=== PATIENT | male | born 1995 | race Caucasian/White ===

== ENCOUNTER 2019-03-29 21:14 | Emergency (ER) | payer SELFPAY ==
[~2019-03-29] VITALS: Ht 185.4 cm; Wt 83.9 kg
--- NOTE | 2019-03-29 21:17 | ED.ADGEN ---
Past History Past Medical History: Asthma Adult General Chief Complaint Chief Complaint ".. I recently quit smoking.. but I ve gotten more short of breath.. the last couple days... I have a hx of asthma.. but my inhaler .. does not seem to be working as well...." HPI HPI Patient is a 24 year old male who presents with above hx and complaints increased wheezing and chest tightness last 48 hours. Patient does have a history of asthma. Patient does not know what his best peak flow is. Patient recently stopped smoking. Patient denies any productive cough. No history of fever. No history of immunosuppression. No history of travel. Has not been on steroids recently. Has had some upper nasal congestion which he attributed to allergies. Patient reports increased tachycardia today. Patient denies any history of cardiac disorders. No hx of previous admissions for his asthma. Pt. does continue to smoke marijuana. Review of Systems Review of Systems Constitutional: Denies fever or chills [] Eyes: Denies change in visual acuity, redness, or eye pain [] HENT: History of nasal congestion Respiratory: Plaints of cough or wheezing and shortness of breath [] Cardiovascular: No additional information not addressed in HPI [] GI: Denies abdominal pain, nausea, vomiting, bloody stools or diarrhea [] : Denies dysuria or hematuria [] Musculoskeletal: Denies back pain or joint pain [] Integument: Denies rash or skin lesions [] Neurologic: Denies headache, focal weakness or sensory changes [] Endocrine: Denies polyuria or polydipsia [] All other systems were reviewed and found to be within normal limits, except as documented in this note. Family History Family History Noncontributory Current Medications Current Medications Current Medications Medications (Trade) Dose Ordered Sig/Marcela Start Time Stop Time Status Last Admin Dose Admin Albuterol Sulfate (Ventolin Hfa Inhaler) 60 puff STK-MED ONCE 03/29/19 23:21 03/29/19 23:21 DC Albuterol/ Ipratropium (Duoneb) 3 ml 1X ONCE 03/29/19 21:30 03/29/19 21:35 DC 03/29/19 22:02 3 ML Lactated Ringer's 1,000 ml @ 1,000 mls/hr Q1H 03/29/19 21:29 03/29/19 22:28 DC 03/29/19 21:50 1,000 MLS/HR Methylprednisolone Sodium Succinate (SOLU-Medrol 125MG VIAL) 125 mg 1X ONCE 03/29/19 21:30 03/29/19 21:35 DC 03/29/19 21:50 125 MG Potassium Chloride (Klor-Con) 40 meq 1X ONCE 03/29/19 23:15 03/29/19 23:21 DC 03/29/19 23:13 40 MEQ Allergies Allergies Allergies Coded Allergies Type Severity Reaction Last Updated Verified No Known Drug Allergies 03/29/19 No Physical Exam Physical Exam Constitutional: Well developed, well nourished, [id number] distress, non- toxic appearance. [] HENT: Normocephalic, atraumatic, bilateral external ears normal, oropharynx moist, no oral exudates, nose swollen turbinates and clear rhinorrhea Eyes: PERRLA, EOMI, conjunctiva normal, no discharge. [] Neck: Normal range of motion, no tenderness, supple, no stridor. [] Cardiovascular: Tachycardia Heart rate regular rhythm, no murmur [] Lungs & Thorax: Bilateral breath sounds equal apex with scattered wheezes on Auscultation []. No intercostal retractions. Abdomen: Bowel sounds normal, soft, no tenderness, no masses, no pulsatile masses. [] Skin: Warm, dry, no erythema, no rash. [] Back: No tenderness, no CVA tenderness. [] Extremities: No tenderness, no cyanosis, no clubbing, ROM intact, no edema. [] Neurologic: Alert and oriented X 3, normal motor function, normal sensory function, no focal deficits noted. [] Psychologic: Affect anxious, judgement normal, mood normal. [] Current Patient Data Vital Signs Vital Signs Date Time Temp Pulse Resp B/P (MAP) Pulse Ox O2 Delivery O2 Flow Rate FiO2 03/29/19 22:08 Room Air 03/29/19 21:26 97.9 110 18 97 Lab Results Laboratory Tests Test 03/29/19 21:35 03/29/19 22:55 White Blood Count 7.2 x10^3/uL (4.0-11.0) Red Blood Count 4.73 x10^6/uL (4.30-5.70) Hemoglobin 14.4 g/dL (13.0-17.5) Hematocrit 42.7 % (39.0-53.0) Mean Corpuscular Volume 90 fL (79-100) Mean Corpuscular Hemoglobin 31 pg (25-35) Mean Corpuscular Hemoglobin Concent 34 g/dL (31-37) Red Cell Distribution Width 13.5 % (11.5-14.5) Platelet Count 192 x10^3/uL (140-400) Neutrophils (%) (Auto) 73 % (31-73) Lymphocytes (%) (Auto) 17 % (24-48) L Monocytes (%) (Auto) 9 % (0-9) Eosinophils (%) (Auto) 1 % (0-3) Basophils (%) (Auto) 0 % (0-3) Neutrophils # (Auto) 5.3 x10^3uL (1.8-7.7) Lymphocytes # (Auto) 1.2 x10^3/uL (1.0-4.8) Monocytes # (Auto) 0.7 x10^3/uL (0.0-1.1) Eosinophils # (Auto) 0.1 x10^3/uL (0.0-0.7) Basophils # (Auto) 0.0 x10^3/uL (0.0-0.2) Prothrombin Time 10.8 SEC (9.4-11.4) Prothrombin Time INR 1.0 (0.9-1.1) Activated Partial Thromboplast Time 25 SEC (23-33) D-Dimer (Christiana) < 0.19 mg/L (0.00-0.50) Sodium Level 136 mmol/L (136-145) Potassium Level 3.1 mmol/L (3.5-5.1) L Chloride Level 102 mmol/L (98-107) Carbon Dioxide Level 25 mmol/L (21-32) Anion Gap 9 (6-14) Blood Urea Nitrogen 15 mg/dL (8-26) Creatinine 1.1 mg/dL (0.7-1.3) Estimated GFR (Cockcroft-Gault) 83.7 Glucose Level 137 mg/dL (70-99) H Calcium Level 9.0 mg/dL (8.5-10.1) Magnesium Level 1.8 mg/dL (1.8-2.4) Total Bilirubin 0.4 mg/dL (0.2-1.0) Direct Bilirubin 0.1 mg/dL (0.0-0.2) Aspartate Amino Transferase (AST) 16 U/L (15-37) Alanine Aminotransferase (ALT) 24 U/L (16-63) Alkaline Phosphatase 62 U/L (46-116) Creatine Kinase 121 U/L (39-308) Troponin I Quantitative < 0.017 ng/mL (0-0.055) WK-Vva-R-Type Natriuretic Peptide 62 pg/mL (0-124) Total Protein 7.2 g/dL (6.4-8.2) Albumin 4.0 g/dL (3.4-5.0) Lipase 63 U/L (73-393) L Urine Collection Type Unknown Urine Color Yellow Urine Clarity Clear Urine pH 6.5 Urine Specific [place] 1.010 Urine Protein Neg (NEG-TRACE) Urine Glucose (UA) Neg mg/dL (NEG) Urine Ketones (Stick) Neg mg/dL (NEG) Urine Blood Neg (NEG) Urine Nitrite Neg (NEG) Urine Bilirubin Neg (NEG) Urine Urobilinogen Dipstick 0.2 mg/dL (0.2 mg/dL) Urine Leukocyte Esterase Neg (NEG) Urine RBC 0 /HPF (0-2) Urine WBC 0 /HPF (0-4) Urine Squamous Epithelial Cells Occ /LPF Urine Transitional Epithelial Cells Occ /LPF Urine Bacteria 0 /HPF (0-FEW) Urine Opiates Screen Neg (NEG) Urine Methadone Screen Neg (NEG) Urine Barbiturates Neg (NEG) Urine Phencyclidine Screen Neg (NEG) Urine Amphetamine/Methamphetamine Neg (NEG) Urine Benzodiazepines Screen Neg (NEG) Urine Cocaine Screen Neg (NEG) Urine Cannabinoids Screen Pos (NEG) Urine Ethyl Alcohol Neg (NEG) EKG EKG Interpretation EKG shows a sinus tachycardia 109 bpm. No findings acute STEMI. No finding[] Radiology/Procedures Radiology/Procedures [][address] [address] IMAGING REPORT Signed PATIENT: HOLLIS MCMAHON ACCOUNT: [id number] : 1995 LOCATION: ER AGE: 24 SEX: M EXAM STATUS: REG ER ORD. PHYSICIAN: ZEE WINSTON MD REASON: Dyspnea, Hx asthma,recently quit smoking PROCEDURE: CHEST PA & LATERAL Chest radiograph 03/29/2019 9:44 PM INDICATION: Dyspnea COMPARISON: None available TECHNIQUE: Frontal and lateral views of the chest are provided. FINDINGS: The cardiomediastinal silhouette is within normal limits. There are no pleural effusions. There is no pulmonary vascular congestion. There is no pneumothorax. The lungs are clear. No significant osseous abnormality is identified. IMPRESSION: No acute cardiopulmonary process. Electronically signed by: Marco Rodriguez MD (03/29/2019 10:52 PM) [facility] DICTATED AND SIGNED BY: MARCO RODRIGUEZ MD DATE: 03/29/19 [id number] CC: ZEE WINSTON MD; PCP,NO ~ Course & Med Decision Making Course & Med Decision Making Pertinent Labs and Imaging studies reviewed. (See chart for details) Patient reports marked improvement of symptoms at time of discharge. Patient take prednisone 50 mg day for 5 days. Patient uses MDI 2 puffs 4 times a day. Patient follow-up primary care. Patient return of any concerns. Patient push fruit juices. Patient continues or persists in not smoking. [] Final Impression Final Impression 1. Asthma exacerbation 2. Hypokalemia[]3.1 3. Marijuana use 4. Recently stopped smoking tobacco. Dragon Disclaimer Dragon Disclaimer This electronic medical record was generated, in whole or in part, using a voice recognition dictation system. Dragon Disclaimer This chart was dictated in whole or in part using Voice Recognition software in a busy, high-work load, and often noisy Emergency Department environment. It may contain unintended and wholly unrecognized errors or omissions. Dragon Disclaimer This chart was dictated in whole or in part using Voice Recognition software in a busy, high-work load, and often noisy Emergency Department environment. It may contain unintended and wholly unrecognized errors or omissions. ZEE WINSTON MD Mar 29, 2019 21:17
[2019-03-29 21:26] VITALS: BP 131/78
[2019-03-29] MEDS ORDERED: IV RINGERS SOLUTION,LACTATED 1,000 ML IV SCH (21:29)
[2019-03-29] MEDS ORDERED: IPRATRPIUM/ALBUTEROL 0.5/2.5MG 3 ML NEBU. NEB ONE (21:30)
[2019-03-29] MEDS ORDERED: methylPREDNISolone SOD SUCC PF 125 MG/2 ML VIAL. SUBCON ONE (21:30)
[2019-03-29 21:54] LABS: BASO % 0 % (0-3); EOS # 0.1 x10^3/uL (0.0-0.7); EOS % 1 % (0-3); HEMATOCRIT 42.7 % (39.0-53.0); HEMOGLOBIN 14.4 g/dL (13.0-17.5); LYMPH # 1.2 x10^3/uL (1.0-4.8); LYMPH % 17 % (24-48); MEAN CORPUSCULAR HEMOGLOBIN 31 pg (25-35); MEAN CORPUSCULAR HGB CONC 34 g/dL (31-37); MEAN CORPUSCULAR VOLUME 90 fL (79-100); MONO # 0.7 x10^3/uL (0.0-1.1); MONO % 9 % (0-9); NEUT # 5.3 x10^3uL (1.8-7.7); NEUT % 73 % (31-73); PLATELET COUNT 192 x10^3/uL (140-400); RED BLOOD COUNT 4.73 x10^6/uL (4.30-5.70); RED CELL DISTRIBUTION WIDTH 13.5 % (11.5-14.5); WHITE BLOOD COUNT 7.2 x10^3/uL (4.0-11.0)
[2019-03-29 22:14] LABS: CREATININE 1.1 mg/dL (0.7-1.3); DIRECT BILIRUBIN 0.1 mg/dL (0.0-0.2); GFR 83.7; MAGNESIUM 1.8 mg/dL (1.8-2.4); POTASSIUM 3.1 mmol/L (3.5-5.1); TOTAL BILIRUBIN 0.4 mg/dL (0.2-1.0); TOTAL PROTEIN 7.2 g/dL (6.4-8.2)
--- NOTE | 2019-03-29 22:56 | RAD ---
Chest radiograph 03/29/2019 9:44 PM INDICATION: Dyspnea COMPARISON: None available TECHNIQUE: Frontal and lateral views of the chest are provided. FINDINGS: The cardiomediastinal silhouette is within normal limits. There are no pleural effusions. There is no pulmonary vascular congestion. There is no pneumothorax. The lungs are clear. No significant osseous abnormality is identified. IMPRESSION: No acute cardiopulmonary process. Electronically signed by: Ludmila Rodriguez MD (03/29/2019 10:52 PM) [facility]
[2019-03-29] MEDS ORDERED: PRED50TA PO (23:06)
[2019-03-29] MEDS ORDERED: POTASSIUM CHLORIDE 20 MEQ TABLET.ER. PO ONE (23:15)
[2019-03-29] MEDS ORDERED: ALBUTEROL SULFATE 8GM INHALER. INH ONE (23:15)
[2019-03-29 23:16] LABS: AMPHETAMINE/METHAMPHETAMINE NEG (NEG); BARBITURATES NEG (NEG); BENZODIAZEPINES NEG (NEG); CANNABINOIDS POS (NEG); COCAINE NEG (NEG); METHADONE NEG (NEG); OPIATES NEG (NEG); PHENCYCLIDINE NEG (NEG)
[2019-03-29 23:21] LABS: BACTERIA,URINE 0 /HPF (0-FEW); BILIRUBIN,URINE NEG (NEG); CLARITY,URINE CLEAR; COLOR,URINE YELLOW; GLUCOSE,URINE NEG (NEG); NITRITE,URINE NEG (NEG); RBC,URINE 0 /HPF (0-2); SQUAMOUS EPITHELIAL CELL,UR OCC /LPF; UROBILINOGEN,URINE 0.2 mg/dL (0.2 mg/dL); WBC,URINE 0 /HPF (0-4)
[2019-03-29] MEDS ORDERED: ALBUTEROL SULFATE 8GM INHALER. ONE (23:21)
--- NOTE | 2019-03-30 01:56 | EKG ---
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
[2019-04-01] MEDS ORDERED: LORA-254 PO (16:08)
== END 2019-03-29 23:25 | disposition home or self-care (01) ==
LOC: ER 21:14
DX: J45.901 Unspecified asthma with (acute) exacerbation (principal); E87.6 Hypokalemia; F12.90 Cannabis use, unspecified, uncomplicated; Z87.891 Personal history of nicotine dependence
CPT/HCPCS: 36415; 71046; 80048; 80076; 80307; 81001; 82550; 83690; 83735; 83880; 84484; 85025; 85379; 85610; 85730; 93005; 94640; 96374; 99285; J2930; J7120; J7613; J7620; 96372

== ENCOUNTER 2019-03-30 23:32 | Emergency (ER) | payer SELFPAY ==
[~2019-03-30] VITALS: Ht 185.4 cm; Wt 83.9 kg
[~2019-03-30 23:32] MED LIST: PRED50TA PO
[2019-03-30 23:47] VITALS: BP 157/84
[2019-03-31] MEDS ORDERED: IV RINGERS SOLUTION,LACTATED 1,000 ML IV SCH (00:26)
--- NOTE | 2019-03-31 00:26 | ED.ADGEN ---
Past History Past Medical History: Asthma Past Surgical History: No Surgical History Smoking: Cigarettes Alcohol Use: Occasionally Drug Use: Marijuana Adult General Chief Complaint Chief Complaint ".. I was here yesterday.. I am still really short of breath.. no better. " HPI HPI Patient is a 24 year old male who presents with history of asthma exacerbation. Patient has continued to smoke. Patient has been taking prednisone to directed. Has been using his MDI 2 puffs every 2-4 hours. Patient reports increased exacerbation of his asthma tonight. Nonproductive cough. No recent travel or specific ill contacts. Review of Systems Review of Systems Constitutional: Denies fever or chills [] Eyes: Denies change in visual acuity, redness, or eye pain [] HENT: Denies nasal congestion or sore throat [] Respiratory: Complaints of coughing and wheezing Cardiovascular: No additional information not addressed in HPI [] GI: Denies abdominal pain, nausea, vomiting, bloody stools or diarrhea [] : Denies dysuria or hematuria [] Musculoskeletal: Denies back pain or joint pain [] Integument: Denies rash or skin lesions [] Neurologic: Denies headache, focal weakness or sensory changes [] Endocrine: Denies polyuria or polydipsia [] All other systems were reviewed and found to be within normal limits, except as documented in this note. Family History Family History Noncontributory Current Medications Current Medications Current Medications Medications (Trade) Dose Ordered Sig/Marcela Start Time Stop Time Status Last Admin Dose Admin Albuterol/ Ipratropium (Duoneb) 3 ml 1X ONCE 03/31/19 00:30 03/31/19 01:04 DC 03/31/19 00:31 3 ML Azithromycin (Zithromax) 500 mg 1X ONCE 03/31/19 03:00 03/31/19 03:01 DC 03/31/19 03:17 500 MG Lactated Ringer's 1,000 ml @ 1,000 mls/hr Q1H 03/31/19 00:26 03/31/19 01:25 DC 03/31/19 00:58 1,000 MLS/HR Magnesium Sulfate 50 ml @ 25 mls/hr 1X ONCE 03/31/19 00:30 03/31/19 02:29 DC 03/31/19 00:58 25 MLS/HR Methylprednisolone Sodium Succinate (SOLU-Medrol 125MG VIAL) 125 mg 1X ONCE 03/31/19 00:30 03/31/19 01:04 DC 03/31/19 00:58 125 MG Nicotine (Nicoderm Cq 21mg) 1 patch 1X ONCE 03/31/19 03:00 03/31/19 03:01 DC 03/31/19 03:17 1 PATCH Potassium Chloride (Klor-Con) 40 meq 1X ONCE 03/31/19 03:00 03/31/19 03:01 DC 03/31/19 03:17 40 MEQ Allergies Allergies Allergies Coded Allergies Type Severity Reaction Last Updated Verified No Known Drug Allergies 03/29/19 No Physical Exam Physical Exam Constitutional: Moderate acute distress, non-toxic appearance. [] HENT: Normocephalic, atraumatic, bilateral external ears normal, oropharynx moist, no oral exudates, nose normal. [] Eyes: PERRLA, EOMI, conjunctiva normal, no discharge. [] Neck: Normal range of motion, no tenderness, supple, no stridor. [] Cardiovascular: Tachycardia Heart rate regular rhythm, no murmur [] Lungs & Thorax: Bilateral breath sounds with apex with scattered wheezing throughout. On Auscultation []. No intercostal retractions. Abdomen: Bowel sounds normal, soft, no tenderness, no masses, no pulsatile masses. [] Skin: Warm, dry, no erythema, no rash. [] Back: No tenderness, no CVA tenderness. [] Extremities: No tenderness, no cyanosis, no clubbing, ROM intact, no edema. [] Neurologic: Alert and oriented X 3, normal motor function, normal sensory fun ction, no focal deficits noted. [] Psychologic: Affect anxious, judgement normal, mood normal. [] Current Patient Data Vital Signs Vital Signs Date Time Temp Pulse Resp B/P (MAP) Pulse Ox O2 Delivery O2 Flow Rate FiO2 03/31/19 00:33 98 Room Air 03/30/19 23:47 97.7 99 18 Lab Results Laboratory Tests Test 03/31/19 00:45 03/31/19 01:34 White Blood Count 11.7 x10^3/uL (4.0-11.0) H Red Blood Count 5.07 x10^6/uL (4.30-5.70) Hemoglobin 15.3 g/dL (13.0-17.5) Hematocrit 45.9 % (39.0-53.0) Mean Corpuscular Volume 91 fL (79-100) Mean Corpuscular Hemoglobin 30 pg (25-35) Mean Corpuscular Hemoglobin Concent 33 g/dL (31-37) Red Cell Distribution Width 13.7 % (11.5-14.5) Platelet Count 218 x10^3/uL (140-400) Neutrophils (%) (Auto) 71 % (31-73) Lymphocytes (%) (Auto) 19 % (24-48) L Monocytes (%) (Auto) 10 % (0-9) H Eosinophils (%) (Auto) 0 % (0-3) Basophils (%) (Auto) 0 % (0-3) Neutrophils # (Auto) 8.3 x10^3uL (1.8-7.7) H Lymphocytes # (Auto) 2.2 x10^3/uL (1.0-4.8) Monocytes # (Auto) 1.1 x10^3/uL (0.0-1.1) Eosinophils # (Auto) 0.0 x10^3/uL (0.0-0.7) Basophils # (Auto) 0.0 x10^3/uL (0.0-0.2) Platelet Estimate Adequate (ADEQUATE) Large Platelets Few Giant Platelets Occ Prothrombin Time 11.8 SEC (9.4-11.4) H Prothrombin Time INR 1.1 (0.9-1.1) Activated Partial Thromboplast Time 24 SEC (23-33) D-Dimer (Christiana) < 0.19 mg/L (0.00-0.50) Sodium Level 140 mmol/L (136-145) Potassium Level 3.2 mmol/L (3.5-5.1) L Chloride Level 104 mmol/L (98-107) Carbon Dioxide Level 25 mmol/L (21-32) Anion Gap 11 (6-14) Blood Urea Nitrogen 14 mg/dL (8-26) Creatinine 1.0 mg/dL (0.7-1.3) Estimated GFR (Cockcroft-Gault) 93.4 Glucose Level 103 mg/dL (70-99) H Calcium Level 9.9 mg/dL (8.5-10.1) Magnesium Level 1.9 mg/dL (1.8-2.4) Total Bilirubin 0.5 mg/dL (0.2-1.0) Direct Bilirubin 0.1 mg/dL (0.0-0.2) Aspartate Amino Transferase (AST) 12 U/L (15-37) L Alanine Aminotransferase (ALT) 28 U/L (16-63) Alkaline Phosphatase 63 U/L (46-116) Creatine Kinase 91 U/L (39-308) Troponin I Quantitative < 0.017 ng/mL (0-0.055) TS-Ysg-U-Type Natriuretic Peptide 137 pg/mL (0-124) H Total Protein 7.3 g/dL (6.4-8.2) Albumin 4.2 g/dL (3.4-5.0) Lipase 184 U/L (73-393) Urine Collection Type Unknown Urine Color Straw Urine Clarity Clear Urine pH 6.0 Urine Specific [place] 1.010 Urine Protein Neg (NEG-TRACE) Urine Glucose (UA) Neg mg/dL (NEG) Urine Ketones (Stick) Neg mg/dL (NEG) Urine Blood Neg (NEG) Urine Nitrite Neg (NEG) Urine Bilirubin Neg (NEG) Urine Urobilinogen Dipstick 0.2 mg/dL (0.2 mg/dL) Urine Leukocyte Esterase Neg (NEG) Urine RBC 0 /HPF (0-2) Urine WBC Occ /HPF (0-4) Urine Squamous Epithelial Cells Occ /LPF Urine Bacteria Few /HPF (0-FEW) Urine Opiates Screen Neg (NEG) Urine Methadone Screen Neg (NEG) Urine Barbiturates Neg (NEG) Urine Phencyclidine Screen Neg (NEG) Urine Amphetamine/Methamphetamine Neg (NEG) Urine Benzodiazepines Screen Neg (NEG) Urine Cocaine Screen Neg (NEG) Urine Cannabinoids Screen Pos (NEG) Urine Ethyl Alcohol Neg (NEG) EKG EKG I interpretation EKG shows a sinus rhythm at 78 bpm. No acute pathology[] Radiology/Procedures Radiology/Procedures Reviewed chest x-ray from yesterday. No significant infiltrate[] Course & Med Decision Making Course & Med Decision Making Pertinent Labs and Imaging studies reviewed. (See chart for details) Patient's symptoms improved clinically at time of discharge. Patient refused admission on this visit. Patient to stop any type smoking. Pt. take meds as previous directed. Will add Zithromax 250 mg daily for 5 days. Patient return if any concerns.. Must stop smoking. Will have nicotine patch placed. [] Final Impression Final Impression 1. Asthma Exacerbation[] 2. Tobacco and marijuana use 3. Mild leukocytosis of 11.7 4. Mild hypokalemia 3.2 ( suspect intracellular shift due to frequent treatments) 5. Out pt treatment failure Dragon Disclaimer Dragon Disclaimer This electronic medical record was generated, in whole or in part, using a voice recognition dictation system. Dragon Disclaimer This chart was dictated in whole or in part using Voice Recognition software in a busy, high-work load, and often noisy Emergency Department environment. It may contain unintended and wholly unrecognized errors or omissions. Dragon Disclaimer This chart was dictated in whole or in part using Voice Recognition software in a busy, high-work load, and often noisy Emergency Department environment. It may contain unintended and wholly unrecognized errors or omissions. Dragon Disclaimer This chart was dictated in whole or in part using Voice Recognition software in a busy, high-work load, and often noisy Emergency Department environment. It may contain unintended and wholly unrecognized errors or omissions. ZEE WINSTON MD Mar 31, 2019 00:26
[2019-03-31] MEDS ORDERED: MAGNESIUM SULFATE 2GM 50 ML IV ONE (00:30)
[2019-03-31] MEDS ORDERED: methylPREDNISolone SOD SUCC PF 125 MG/2 ML VIAL. IV ONE (00:30)
[2019-03-31] MEDS ORDERED: IPRATRPIUM/ALBUTEROL 0.5/2.5MG 3 ML NEBU. NEB ONE (00:30)
[2019-03-31 01:13] LABS: BASO % 0 % (0-3); EOS % 0 % (0-3); HEMATOCRIT 45.9 % (39.0-53.0); HEMOGLOBIN 15.3 g/dL (13.0-17.5); LYMPH # 2.2 x10^3/uL (1.0-4.8); LYMPH % 19 % (24-48); MEAN CORPUSCULAR HEMOGLOBIN 30 pg (25-35); MEAN CORPUSCULAR HGB CONC 33 g/dL (31-37); MEAN CORPUSCULAR VOLUME 91 fL (79-100); MONO # 1.1 x10^3/uL (0.0-1.1); MONO % 10 % (0-9); NEUT # 8.3 x10^3uL (1.8-7.7); NEUT % 71 % (31-73); PLATELET COUNT 218 x10^3/uL (140-400); RED BLOOD COUNT 5.07 x10^6/uL (4.30-5.70); RED CELL DISTRIBUTION WIDTH 13.7 % (11.5-14.5); WHITE BLOOD COUNT 11.7 x10^3/uL (4.0-11.0)
[2019-03-31 01:27] LABS: ALBUMIN 4.2 g/dL (3.4-5.0); CALCIUM 9.9 mg/dL (8.5-10.1); DIRECT BILIRUBIN 0.1 mg/dL (0.0-0.2); GFR 93.4; MAGNESIUM 1.9 mg/dL (1.8-2.4); POTASSIUM 3.2 mmol/L (3.5-5.1); TOTAL BILIRUBIN 0.5 mg/dL (0.2-1.0); TOTAL PROTEIN 7.3 g/dL (6.4-8.2)
[2019-03-31 01:49] LABS: PLT ESTIMATE ADEQUATE (ADEQUATE)
[2019-03-31 01:55] LABS: AMPHETAMINE/METHAMPHETAMINE NEG (NEG); BARBITURATES NEG (NEG); BENZODIAZEPINES NEG (NEG); CANNABINOIDS POS (NEG); COCAINE NEG (NEG); METHADONE NEG (NEG); OPIATES NEG (NEG); PHENCYCLIDINE NEG (NEG)
[2019-03-31 02:00] LABS: BILIRUBIN,URINE NEG (NEG); CLARITY,URINE CLEAR; COLOR,URINE STRAW; GLUCOSE,URINE NEG (NEG); NITRITE,URINE NEG (NEG); RBC,URINE 0 /HPF (0-2); UROBILINOGEN,URINE 0.2 mg/dL (0.2 mg/dL)
[2019-03-31 02:01] LABS: BACTERIA,URINE FEW /HPF (0-FEW); SQUAMOUS EPITHELIAL CELL,UR OCC /LPF; WBC,URINE OCC /HPF (0-4)
[2019-03-31] MEDS ORDERED: AZIT250T PO (02:53)
[2019-03-31] MEDS ORDERED: AZITHROMYCIN 250 MG TABLET. PO ONE (03:00)
[2019-03-31] MEDS ORDERED: POTASSIUM CHLORIDE 20 MEQ TABLET.ER. PO ONE (03:00)
[2019-03-31] MEDS ORDERED: NICOTINE 21MG PATCH. TD ONE (03:00)
--- NOTE | 2019-04-01 09:51 | EKG ---
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
[2019-04-01] MEDS ORDERED: LORA-254 PO (16:08)
== END 2019-03-31 03:20 | disposition home or self-care (01) ==
LOC: ER 23:32
DX: J45.901 Unspecified asthma with (acute) exacerbation (principal); D72.829 Elevated white blood cell count, unspecified; E87.6 Hypokalemia; F17.210 Nicotine dependence, cigarettes, uncomplicated; F12.10 Cannabis abuse, uncomplicated
CPT/HCPCS: 36415; 80048; 80076; 80307; 81001; 82550; 83690; 83735; 83880; 84484; 85025; 85379; 85610; 85730; 93005; 94640; 96365; 96375; 99285; J0456; J2930; J3475; J7120; J7620

== ENCOUNTER 2019-03-31 05:08 | Inpatient (IN) | payer SELFPAY ==
[~2019-03-31] VITALS: Ht 185.4 cm; Wt 79.5 kg
[~2019-03-31 05:08] MED LIST changes: +AZIT250T PO
--- NOTE | 2019-03-31 05:19 | ED.ADGEN ---
Past History Past Medical History: Anxiety, Asthma, Bronchitis, GERD Past Surgical History: No Surgical History Smoking: Cigarettes Alcohol Use: Occasionally Drug Use: Marijuana Adult General Chief Complaint Chief Complaint ".. I am back.. I am back to wheezing all the time.. and I vomited...".. "I think ..I am just having increased anxiety.. " HPI HPI Patient is a 24 year old male who presents with asthma exacerbation. Pt. seen yesterday and today. Pt. refused admission at two prior visits. Pt. now wants to be admitted. Pt. took off his nicotine patch, because he does not to use a nicotine substitute. Patient states he wants to stop all nicotine products. Patient did vomit once after getting home. Review of Systems Review of Systems Constitutional: Denies fever or chills [] Eyes: Denies change in visual acuity, redness, or eye pain [] HENT: Denies nasal congestion or sore throat [] Respiratory: Complaints of a nonproductive cough and wheezing Cardiovascular: No additional information not addressed in HPI [] GI: Denies abdominal pain, , bloody stools or diarrhea [, The]complains of nausea and vomiting �1 : Denies dysuria or hematuria [] Musculoskeletal: Denies back pain or joint pain [] Integument: Denies rash or skin lesions [] Neurologic: Denies headache, focal weakness or sensory changes [] Endocrine: Denies polyuria or polydipsia [] All other systems were reviewed and found to be within normal limits, except as documented in this note. Family History Family History Noncontributory Current Medications Current Medications Current Medications Medications (Trade) Dose Ordered Sig/Marcela Start Time Stop Time Status Last Admin Dose Admin Acetaminophen (Tylenol) 650 mg PRN Q4HRS PRN 03/31/19 05:45 04/01/19 05:44 UNV Albuterol/ Ipratropium (Duoneb) 3 ml RTQID 03/31/19 08:00 04/01/19 07:59 UNV Azithromycin (Zithromax) 250 mg DAILY 03/31/19 09:00 UNV Diphenhydramine HCl (Benadryl) 50 mg 1X ONCE 03/31/19 05:45 03/31/19 05:46 DC 03/31/19 05:42 50 MG Famotidine (Pepcid Vial) 20 mg DAILY 03/31/19 09:00 UNV Lactated Ringer's 1,000 ml @ 160 mls/hr Q6H15M 03/31/19 05:45 UNV Lorazepam (Ativan) 1 mg TID PRN PRN 03/31/19 05:45 UNV Methylprednisolone Sodium Succinate (SOLU-Medrol 40MG VIAL) 40 mg DAILY 03/31/19 09:00 UNV Ondansetron HCl (Zofran) 4 mg PRN Q4HRS PRN 03/31/19 05:45 04/01/19 05:44 UNV Prochlorperazine Edisylate (Compazine) 10 mg 1X ONCE 03/31/19 05:45 03/31/19 05:46 DC 03/31/19 05:42 10 MG Allergies Allergies Allergies Coded Allergies Type Severity Reaction Last Updated Verified No Known Drug Allergies 03/29/19 No Physical Exam Physical Exam Constitutional: In moderate acute distress, non-toxic appearance. [] HENT: Normocephalic, atraumatic, bilateral external ears normal, oropharynx moist, no oral exudates, nose normal. [] Eyes: PERRLA, EOMI, conjunctiva normal, no discharge. [] Neck: Normal range of motion, no tenderness, supple, no stridor. [] Cardiovascular: Tachycardia Heart rate regular rhythm, no murmur [] Lungs & Thorax: Bilateral breath sounds and wheezes throughout auscultation [] Abdomen: Bowel sounds normal, soft, no tenderness, no masses, no pulsatile masses. [] Skin: Warm, dry, no erythema, no rash. [] Tattoos Back: No tenderness, no CVA tenderness. [] Extremities: No tenderness, no cyanosis, no clubbing, ROM intact, no edema. [] No cording Neurologic: Alert and oriented X 3, normal motor function, normal sensory function, no focal deficits noted. [] Psychologic: Affect anxious, judgement normal, mood normal. [] Current Patient Data Vital Signs Vital Signs Date Time Temp Pulse Resp B/P (MAP) Pulse Ox O2 Delivery O2 Flow Rate FiO2 03/31/19 05:58 98 Room Air 03/31/19 05:51 97.9 105 18 Lab Results Reviewed prior labs. EKG EKG Reviewed prior EKGs's[] Radiology/Procedures Radiology/Procedures Reviewed prior CXR[] Course & Med Decision Making Course & Med Decision Making Pertinent Labs and Imaging studies reviewed. (See chart for details) Admit to Dr. Ortiz for further eval. and tx. [] Final Impression Final Impression 1. Asthma Exacerbation[] 2. Nausea and Vomiting 3. Gastritis 4. Mild Leukocytosis 11.7 5. Hx of Tobacco and Marijuana use. 6. Out pt. Tx. failure Dragon Disclaimer Dragon Disclaimer This electronic medical record was generated, in whole or in part, using a voice recognition dictation system. Dragon Disclaimer This chart was dictated in whole or in part using Voice Recognition software in a busy, high-work load, and often noisy Emergency Department environment. It may contain unintended and wholly unrecognized errors or omissions. ZEE WINSTON MD Mar 31, 2019 05:19
[2019-03-31] MEDS ORDERED: IV RINGERS SOLUTION,LACTATED 1,000 ML IV SCH (05:30)
[2019-03-31] MEDS ORDERED: FAMOTIDINE 20 MG/2 ML VIAL IVP ONE (05:45)
[2019-03-31] MEDS ORDERED: IPRATRPIUM/ALBUTEROL 0.5/2.5MG 3 ML NEBU. NEB ONE (05:45)
[2019-03-31] MEDS ORDERED: ACETAMINOPHEN 325 MG TABLET PO PRN (05:45)
[2019-03-31] MEDS ORDERED: PROCHLORPERAZINE 10 MG/2 ML VIAL. IV ONE (05:45)
[2019-03-31] MEDS ORDERED: diphenhydrAMINE 50 MG/ML VIAL IV ONE (05:45)
[2019-03-31] MEDS: IPRATRPIUM/ALBUTEROL 0.5/2.5MG 3 ML NEBU. NEB SCH ×4 (05:58→20:00)
[2019-03-31] MEDS: IV RINGERS SOLUTION,LACTATED 1,000 ML IV SCH ×3 (06:00→19:22)
[2019-03-31 07:12] LABS: BASO % 0 % (0-3); EOS % 0 % (0-3); HEMATOCRIT 42.9 % (39.0-53.0); HEMOGLOBIN 14.5 g/dL (13.0-17.5); LYMPH # 0.6 x10^3/uL (1.0-4.8); LYMPH % 7 % (24-48); MEAN CORPUSCULAR HEMOGLOBIN 31 pg (25-35); MEAN CORPUSCULAR HGB CONC 34 g/dL (31-37); MEAN CORPUSCULAR VOLUME 91 fL (79-100); MONO # 0.1 x10^3/uL (0.0-1.1); MONO % 1 % (0-9); NEUT # 8.5 x10^3uL (1.8-7.7); NEUT % 92 % (31-73); PLATELET COUNT 206 x10^3/uL (140-400); RED BLOOD COUNT 4.69 x10^6/uL (4.30-5.70); RED CELL DISTRIBUTION WIDTH 13.6 % (11.5-14.5); WHITE BLOOD COUNT 9.3 x10^3/uL (4.0-11.0)
[2019-03-31 07:22] LABS: ALBUMIN 3.9 g/dL (3.4-5.0); CALCIUM 9.1 mg/dL (8.5-10.1); DIRECT BILIRUBIN 0.1 mg/dL (0.0-0.2); GFR 93.4; POTASSIUM 3.6 mmol/L (3.5-5.1); TOTAL BILIRUBIN 0.5 mg/dL (0.2-1.0)
[2019-03-31 08:12] VITALS: BP 124/73
[2019-03-31] MEDS: ONDANSETRON PF 4 MG/2 ML VIAL. IV PRN ×2 (08:21→15:38)
[2019-03-31] MEDS: methylPREDNISolone SOD SUCC PF 40 MG/ML VIAL. IV SCH (08:27)
[2019-03-31] MEDS: AZITHROMYCIN 250 MG TABLET. PO SCH (08:27)
[2019-03-31] MEDS: FAMOTIDINE 20 MG/2 ML VIAL IVP SCH (08:28)
[2019-03-31] MEDS: LORazepam 1 MG TABLET PO PRN ×2 (09:14→17:36)
--- NOTE | 2019-03-31 14:30 | HP ---
ADMIT DATE: 03/31/2019 HISTORY OF PRESENT ILLNESS: The patient is a 24-year-old male patient who came to the Emergency Room with chest tightness, wheezing, has also shortness of breath and vomiting. He was evaluated twice before for asthma exacerbation, refused admission and now he wants to be admitted. He discontinued his nicotine patch and has not been using any nicotine substitute. He stated that he wants to stop all nicotine products. The patient did vomit once after getting home. He was extensively investigated. He was admitted with asthma exacerbation, nausea, vomiting, probable gastritis, history of tobacco and marijuana use. PAST MEDICAL HISTORY: Significant for bronchial asthma in childhood, attention deficit hyperactivity disorder, OCD and bipolar. PAST SURGICAL HISTORY: Unremarkable. FAMILY HISTORY: He has 1 older brother and younger sister, both healthy. His father is alive and healthy. His mother has endocarditis. SOCIAL HISTORY: He is not and has no children. He does not drink alcohol or use marijuana for the last 8 years. Nobody else in the family has similar symptoms. REVIEW OF SYSTEMS: As in history of present illness. MEDICATIONS: He is currently on following medications: He is on azithromycin and prednisone 50 mg daily. PHYSICAL EXAMINATION: GENERAL: On arrival to the Emergency Room, he looked well and was clearly in no apparent respiratory distress. No pallor, jaundice, cyanosis or thyromegaly. No jugular venous distention. No limb edema. VITAL SIGNS: His heart rate was 85, blood pressure was 119/62, temperature was 97.9, respiratory rate was 18 and oxygen saturation was 96%. HEAD, EYES, EARS, NOSE AND THROAT: Normocephalic, atraumatic. NECK: Supple. HEART: Showed normal first and second heart sounds. No gallop, rub or murmur. CHEST: Clear to auscultation. No crepitation or rhonchi. ABDOMEN: Distended, soft, nontender. NEUROLOGIC: He is awake, alert, responding appropriately. All cranial nerves intact. EXTREMITIES: He moves extremities without difficulty. LABORATORY DATA: Showed a white cell count 9300, hemoglobin 14, hematocrit 42, MCV 91, and platelet count of 96,000. Serum sodium was 143, potassium 3.6, chloride 106, bicarbonate 27, anion gap of 10, BUN 14, creatinine 1, estimated GFR was 93 mL per minute. His glucose was 118, calcium was 9.1. Total bilirubin, AST, ALT, alkaline phosphatase were normal. Total protein was 7, albumin 3.9. His prothrombin time was 11.7, INR 1.1, aPTT was 2.7. ASSESSMENT AND PLAN: In summary, there is asthma exacerbation together with marijuana-induced cyclical vomiting. Continue with IV fluid. CHECO PEARCE MD DR: BERTRAND/jacki JOB#: [id number] / [id number]
[2019-03-31 14:50] VITALS: BP 116/70
[2019-03-31] MEDS: PANTOPRAZOLE 40 MG TABLET. PO SCH (15:38)
[2019-03-31 19:53] VITALS: BP 126/74
[2019-04-01] MEDS: IPRATRPIUM/ALBUTEROL 0.5/2.5MG 3 ML NEBU. NEB SCH (05:39)
[2019-04-01 05:49] VITALS: BP 125/73
[2019-04-01 06:22] LABS: HEMATOCRIT 44.5 % (39.0-53.0); RED BLOOD COUNT 4.88 x10^6/uL (4.30-5.70); RED CELL DISTRIBUTION WIDTH 13.8 % (11.5-14.5)
[2019-04-01 06:34] LABS: ALBUMIN 3.7 g/dL (3.4-5.0); ALBUMIN/GLOBULIN RATIO 1.2 (1.0-1.7); CALCIUM 8.9 mg/dL (8.5-10.1); CREATININE 1.2 mg/dL (0.7-1.3); GFR 75.7; POTASSIUM 3.6 mmol/L (3.5-5.1); TOTAL BILIRUBIN 0.9 mg/dL (0.2-1.0); TOTAL PROTEIN 6.7 g/dL (6.4-8.2)
[2019-04-01] MEDS: FAMOTIDINE 20 MG/2 ML VIAL IVP SCH (07:32)
[2019-04-01] MEDS: AZITHROMYCIN 250 MG TABLET. PO SCH (07:32)
[2019-04-01] MEDS: methylPREDNISolone SOD SUCC PF 40 MG/ML VIAL. IV SCH (07:32)
[2019-04-01] MEDS: PANTOPRAZOLE 40 MG TABLET. PO SCH (07:32)
--- NOTE | 2019-04-01 10:06 | EKG ---
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
[2019-04-01] MEDS ORDERED: LORazepam 1 MG TABLET PO PRN (10:15)
[2019-04-01 10:55] VITALS: BP 114/70
[2019-04-01 14:45] VITALS: BP 115/59
[2019-04-01] MEDS ORDERED: LORazepam 1 MG TABLET PO ONE (16:00)
[2019-04-01] MEDS ORDERED: LORA-254 PO (16:08)
--- NOTE | 2019-04-01 18:43 | DS ---
DATE OF DISCHARGE: 04/01/2019 HOSPITAL COURSE: The patient is a 24-year-old male patient who was admitted with chest tightness, wheezing, had also shortness of breath and vomiting. He was evaluated twice before for asthma exacerbation, refused admission. He now wants to be admitted. He discontinued his nicotine patch and has not been using any nicotine substitute. He states he wants to stop all nicotine products. The patient did vomit once after getting home, he was extensively investigated and was admitted with asthma exacerbation, nausea, vomiting, probably gastritis, history of tobacco and marijuana use. He actually did very well. He has had no further episodes of nausea and vomiting. He has no shortness of breath. His mostly complaint was because of anxiety. PHYSICAL EXAMINATION: GENERAL: On examining him today, he looked well and was clearly in no apparent respiratory distress. No pallor, jaundice, cyanosis or thyromegaly. No jugular venous distention. No limb edema. VITAL SIGNS: His heart rate was 101, blood pressure was 115/59, temperature was 98, respiratory rate 20, and oxygen saturation was 98%. HEAD, EYES, EARS, NOSE AND THROAT: Showed normocephalic, atraumatic. NECK: Supple. HEART: Showed normal first and second heart sounds with no gallop, rub or murmur. CHEST: Clear to auscultation. No crepitation or rhonchi. ABDOMEN: Distended, soft, nontender. No guarding or rigidity. No organomegaly. All hernial orifices intact. Bowel sounds normal. NEUROLOGIC: He is awake, alert, responding appropriately. All cranial nerves intact. EXTREMITIES: He moves extremities without difficulty, ambulates without assistance or assistive devices. LABORATORY DATA: His lab work this morning showed a white cell count of 8000, hemoglobin 15, hematocrit 44, MCV 91, and platelet count of 191,000. His chemistry showed a serum sodium 143, potassium 3.6, chloride 106, bicarbonate 28, anion gap of 9, BUN 13, creatinine 1.2, estimated GFR was 76 mL per minute, his glucose was 96, calcium was 8.9. Total bilirubin, AST, ALT, alkaline phosphatase were normal. Total protein was 6.7, albumin 3.7. His prothrombin time was 11.7, INR of 1.1, aPTT was 25. DISCHARGE MEDICATIONS: The patient was discharged home to continue on his steroids as well as inhalers. He was given also Ativan 1 mg 3 times a day for 5 more days and was advised to go to his primary care physician to continue with antianxiety medication. CHECO PEARCE MD DR: BERTRAND/jacki JOB#: [id number] / [id number]
== END 2019-04-01 16:29 | disposition home or self-care (01) | DRG 392 ==
LOC: ER 05:08 → 1 SOUTH 07:51
PROVIDERS: ADMIT Internal Medicine; ATTEND Internal Medicine
DX: K29.70 Gastritis, unspecified, without bleeding (principal); J45.901 Unspecified asthma with (acute) exacerbation; K21.9 Gastro-esophageal reflux disease without esophagitis; F41.9 Anxiety disorder, unspecified; F12.90 Cannabis use, unspecified, uncomplicated; F90.9 Attention-deficit hyperactivity disorder, unspecified type; F42.8 Other obsessive-compulsive disorder; F31.9 Bipolar disorder, unspecified; G43.A0 Cyclical vomiting, in migraine, not intractable; Z87.891 Personal history of nicotine dependence
CPT/HCPCS: 36415; 80048; 80053; 80076; 85025; 85027; 85610; 85730; 86850; 86900; 86901; 93005; 94640; 96361; 96374; 96375; J0456; J0780; J1200; J2060; J2405; J2920; J3490; J7120; J7620; 99285-25

== ENCOUNTER 2020-09-12 04:14 | Emergency (ER) | payer SELFPAY ==
[~2020-09-12] VITALS: Ht 185.4 cm; Wt 81.8 kg
[~2020-09-12 04:14] MED LIST changes: +LORA-254 PO
--- NOTE | 2020-09-12 04:21 | PHYS DOC ---
Past History Past Medical History: Anxiety, Asthma, Bronchitis, GERD Past Surgical History: No Surgical History Smoking: Cigarettes Alcohol Use: Occasionally Drug Use: Marijuana General Adult HPI: HPI: "My Rt.nut been hurting.. the past week.. off and on..after sex last night..." Patient is a 25 year old male who presents with above hx and complaints of tenderness in Rt. testicle off and on past week. Pt. states is worse tonight. Did have sex yesterday without signficant change in pain. Pt. on exam appear to be in epididymis on right. Pain radiates into the right lower groin. Only one lifetime sexual partner. No history of STDs. No history of recent travel. No specific ill contacts. No history of immunosuppression. No trauma. Review of Systems: Review of Systems: Constitutional: Denies fever or chills Eyes: Denies change in visual acuity HENT: Denies nasal congestion or sore throat Respiratory: Denies cough or shortness of breath Cardiovascular: Denies chest pain or edema GI: Denies abdominal pain, nausea, vomiting, bloody stools or diarrhea . Co mplains of right testicle pain : Denies dysuria Musculoskeletal: Denies back pain or joint pain Integument: Denies rash Neurologic: Denies headache, focal weakness or sensory changes Endocrine: Denies polyuria or polydipsia Lymphatic: Denies swollen glands Psychiatric: Denies depression or anxiety Family History: Family History: Noncontributory to presentation Current Medications: Current Meds: See nursing for home meds Allergies: Allergies: Allergies Coded Allergies Type Severity Reaction Last Updated Verified No Known Drug Allergies 03/29/19 No Physical Exam: PE: Constitutional: Well developed, well nourished, moderate acute distress, non- toxic appearance. [] HENT: Normocephalic, atraumatic, bilateral external ears normal, oropharynx moist, no oral exudates, nose normal. [] Eyes: PERRLA, EOMI, conjunctiva normal, no discharge. [] Neck: Normal range of motion, no tenderness, supple, no stridor. [] Cardiovascular:Heart rate regular rhythm, no murmur [] Lungs & Thorax: Bilateral breath sounds at apex on auscultation [] Abdomen: Bowel sounds normal, soft, no tenderness, no masses, no pulsatile masses. [] Circumcised male. Testicle on right hangs higher. Mild tenderness. Epididymis is very tender to palpation. No penile discharge. Skin: Warm, dry, no erythema, no rash. [] Back: No tenderness, no CVA tenderness. [] Extremities: No tenderness, no cyanosis, no clubbing, ROM intact, no edema. No psoas sign. Neurologic: Alert and oriented X 3, normal motor function, normal sensory function, no focal deficits noted. [] Psychologic: Affect normal, judgement normal, mood normal. [] EKG: EKG: [] Radiology/Procedures: Radiology/Procedures: [][address] [address] IMAGING REPORT Signed PATIENT: HOLLIS MCMAHON ACCOUNT: [id number] : 1995 LOCATION: ER AGE: 25 SEX: M EXAM STATUS: REG ER ORD. PHYSICIAN: ZEE WINSTON MD REASON: Rt testicle pain PROCEDURE: TESTICULAR/SCROTUM EXAMINATION: US TESTICULAR, 09/12/2020 5:08 AM CLINICAL INDICATION: Right testicular pain TECHNIQUE: Grayscale, color and spectral Doppler ultrasound images of the testicles and scrotum. COMPARISON: FINDINGS: The right testicle measures 4.7 x 2.8 x 2.7 cm. The left testicle measures 4.2 x 3.0 x 2.3 cm. Both testicles are homogeneous with normal blood flow. No testicular mass. The epididymides are normal in size with normal blood flow. There is a 8mm anechoic left epididymal head cyst. No hydrocele. IMPRESSION: 1. No acute abnormality. 2. 8 mm left epididymal head cyst. Electronically signed by: Priyanka Doty MD (09/12/2020 6:13 AM) [id number] DICTATED AND SIGNED BY: PRIYANKA DOTY MD DATE: 09/12/2011 CC: ZEE WINSTON MD; PCP,NO ~MTH0 0 Heart Score: Risk Factors: Risk Factors: DM, Current or recent (<one month) smoker, HTN, HLP, family history of CAD, obesity. Risk Scores: Score 0 - 3: 2.5% MACE over next 6 weeks - Discharge Home Score 4 - 6: 20.3% MACE over next 6 weeks - Admit for Clinical Observation Score 7 - 10: 72.7% MACE over next 6 weeks - Early Invasive Strategies Course & Med Decision Making: Course & Med Decision Making Pertinent Labs and Imaging studies reviewed. (See chart for details) Ultrasound still pending at shift change. 0615 hrs. Patient to take Keflex 500 mg 3 times a day. Follow-up cultures. Use ice packs as needed. Follow-up primary care. Safe sex. Impression: 1. Right testicle pain 2. Right epididymis pain-suspect he has epididymitis [] Dragon Disclaimer: Dragon Disclaimer: This electronic medical record was generated, in whole or in part, using a voice recognition dictation system. Departure Departure: Referrals: PCP,MAX (PCP) Scripts Cephalexin (KEFLEX) 750 Mg Capsule 500 MG PO TID for epididymitis for 10 Days, #20 CAP Prov: ZEE WINSTON MD 09/12/20 Dragon Disclaimer This chart was dictated in whole or in part using Voice Recognition software in a busy, high-work load, and often noisy Emergency Department environment. It may contain unintended and wholly unrecognized errors or omissions. Dragon Disclaimer This chart was dictated in whole or in part using Voice Recognition software in a busy, high-work load, and often noisy Emergency Department environment. It may contain unintended and wholly unrecognized errors or omissions. ZEE WINSTON MD Sep 12, 2020 04:21
[2020-09-12] MEDS ORDERED: KETOROLAC 60 MG/2 ML VIAL. IM ONE (05:00)
[2020-09-12] MEDS ORDERED: AZITHROMYCIN 250 MG TABLET. PO ONE (05:00)
[2020-09-12] MEDS ORDERED: metroNIDAZOLE 500 MG TABLET PO ONE (05:00)
[2020-09-12] MEDS ORDERED: cefTRIAXone IM 1 GM VIAL IM ONE (05:00)
[2020-09-12] MEDS ORDERED: ONDANSETRON ODT 4 MG TAB.RAPDIS PO ONE (05:00)
[2020-09-12 05:11] VITALS: BP 131/88
[2020-09-12 05:15] LABS: BACTERIA,URINE FEW /HPF (0-FEW); BILIRUBIN,URINE NEG (NEG); CLARITY,URINE CLEAR; COLOR,URINE YELLOW; GLUCOSE,URINE NEG (NEG); NITRITE,URINE NEG (NEG); RBC,URINE 0 /HPF (0-2); SQUAMOUS EPITHELIAL CELL,UR FEW /LPF; UROBILINOGEN,URINE 0.2 mg/dL (0.2 mg/dL); WBC,URINE 0 /HPF (0-4)
--- NOTE | 2020-09-12 06:16 | RAD ---
EXAMINATION: US TESTICULAR, 09/12/2020 5:08 AM CLINICAL INDICATION: Right testicular pain TECHNIQUE: Grayscale, color and spectral Doppler ultrasound images of the testicles and scrotum. COMPARISON: FINDINGS: The right testicle measures 4.7 x 2.8 x 2.7 cm. The left testicle measures 4.2 x 3.0 x 2.3 cm. Both t esticles are homogeneous with normal blood flow. No testicular mass. The epididymides are normal in s ize with normal blood flow. There is a 8mm anechoic left epididymal head cyst. No hydrocele. IMPRESSION: 1. No acute abnormality. 2. 8 mm left epididymal head cyst. Electronically signed by: Priyanka Doty MD (09/12/2020 6:13 AM) [id number]
[2020-09-12] MEDS ORDERED: CEPH750C9 PO (06:22)
== END 2020-09-12 06:38 | disposition home or self-care (01) ==
LOC: ER 04:14
DX: N45.1 Epididymitis (principal); N50.811 Right testicular pain; F41.9 Anxiety disorder, unspecified; J45.909 Unspecified asthma, uncomplicated; K21.9 Gastro-esophageal reflux disease without esophagitis; F17.210 Nicotine dependence, cigarettes, uncomplicated; F12.90 Cannabis use, unspecified, uncomplicated
CPT/HCPCS: 76870; 81001; 87491; 87591; 96372; 99284; J0696; J1885; Q0162; 36415